=== PATIENT | male | born 1945 | race Caucasian/White ===

== ENCOUNTER 2020-04-08 04:14 | Emergency (ER) | payer MEDICARE, SELFPAY ==
[2020-04-08 04:34] LABS: Glucose Point of Care 192 (65-105)
--- NOTE | 2020-04-08 04:49 | ED.CPR ---
HPI - CPR General Chief Complaint: Cardiac Arrest/CPR Stated Complaint: Cardiac arrest Time Seen by Provider: 04/08/20 04:18 History of Present Illness HPI narrative: Patient is a 74-year-old male who presents the ER in cardiac arrest. Patient contacted EMS due to sudden onset shortness of breath. He told EMS that symptoms began around 1 AM and continued to worsen. EMS arrived and were loading him in the truck around 3:37 AM when patient became unresponsive. Patient was very sweaty and cool, he was short of breath and sounded very wet when he was breathing. He has no history of CHF. His Accu-Chek was in the 200s for EMS. They intubated the patient with a Luis airway and began ACLS protocol. Related Data Allergies Allergy/AdvReac Type Severity Reaction Status Date / Time erythromycin base Allergy Unknown tachycardia Verified 03/19/20 10:56 loratadine Allergy Unknown tachycardia Verified 03/19/20 10:56 pseudoephedrine Allergy Unknown tachycardia Verified 03/19/20 10:56 PSEUDOEPHEDRINE SULFATE Allergy Unknown tachycardia Uncoded 03/19/20 10:56 Review of Systems Review of Systems: ROS unobtainable: Yes unobtainable due to endotracheal tube PMFSH Past Medical History Medical History (Updated 04/08/20 @ 05:16 by Enmanuel Lomas MD) Benign prostatic hyperplasia Depression with anxiety Essential (primary) hypertension Gastroesophageal reflux disease without esophagitis Screening for colon cancer Surgical History Surgical History (Updated 04/08/20 @ 05:12 by Enmanuel Lomas MD) Surgical history unknown Family History Family History (Updated 01/19/17 @ 23:56 by DOCTOR UNKNOWN) Father Family history of malignant neoplasm of brain, Onset Age: 80 Patient's father is Mother Family history of malignant neoplasm of breast in first degree relative, Onset Age: 84 Patient's mother is Social History Social History (Updated 09/26/19 @ 10:55 by Fatou Woods) Smoking status: Former smoker Smoking end date: 10/15/72 Alcohol intake: never Substance use: never Substance use type: does not use Exam Narrative: Exam Narrative: GENERAL: Unresponsive, overweight. HEAD: Normocephalic, atraumatic. EYES: Pupils fixed and mid dilated. ENT: Mucous membranes moist. CHEST: No spontaneous respiratory effort, coarse lung sounds with bagging. HEART: No pulses when CPR is stopped. Poor capillary refill. ABDOMEN: Soft, nondistended. EXTREMITIES: No spontaneous movements, no evidence of deformity. No edema. SKIN: Cool and pale, cyanosis noted to the head, no rash. NEURO: GCS 3 Course Course Emergency Course: ACLS protocol followed, patient received multiple rounds of epinephrine, Accu-Chek was in the 190s, he also received an amp of sodium bicarbonate. Luis airway was removed and patient was intubated. He was placed on ventilator with 12 cm water of PEEP to help attempt to drive fluid out of his lungs. Patient was also deep suctioned. Asystole at each pulse check. Pronounced as having at 4:[address] Duarte contacted and will sign the certificate. The patients son was contacted and informed that the patient has . Procedures Intubation Intubation #1: Intubation Date: 04/08/20 Intubation Time: 04:10 Time out performed: No sedative: none Laryngoscope: Angelica (4) Tube Size (cm): 7.5 Method of Intubation: orotracheal Number of Attempts: 2 Tube Placement Confirmation: visualized tube passing through cords, equal breath sounds bilaterally, no breath sounds over epigastrium and confirmation by capnometry Patient Tolerated Procedure: no complications MDM - Cardiac Arrest/CPR Lab Data Labs: Lab Results 04/08/20 Range/Units 04:29 POC Capillary Glucose 192 H (65-105) mg/dl Critical Care Time Critical Care Time Critical Care Time: Yes Total Critical Care Time: 35 Discharg
--- NOTE | 2020-04-08 06:00 | PC.NURSE ---
Spoke with patient's son Prateek Carpenter who gave verbal consent to transport the patient to [facility] in [facility]. Spoke with the home and they stated they would be here as soon as possible.
--- NOTE | 2020-04-08 10:11 | PC.NURSE ---
[facility] Coroner's office notified that patient will be released to [facility] in [place]. I spoke with Dana at [facility] and she reports the family has agreed to donation and patient is enroute to [facility] at this time and will be released to [facility] after donation.
--- NOTE | 2020-04-23 06:50 | PC.NURSE ---
LATE ENTRY This note is being entered to document information to the patient's record. The following information was omitted on [04-08-20], by [Filippo Valiente]. The time on code sheet of 0405 represents the time of EMS' call for report on inbound patient to ED. Patient arrived to ED room at 0414 where CPR and ACLS guidelines were continued.
== END 2020-04-08 06:11 | disposition expired ==
PROVIDERS: Emergency Provider Emergency Medicine; PCP Internal Medicine
DX: I46.9 Cardiac arrest, cause unspecified (principal); N40.0 Benign prostatic hyperplasia without lower urinary tract symptoms; I10 Essential (primary) hypertension; K21.9 Gastro-esophageal reflux disease without esophagitis; Z87.891 Personal history of nicotine dependence
CPT/HCPCS: 31500; 92950; 99285; J0171; J7030